=== PATIENT | female | born 1985 | race Caucasian/White ===

== ENCOUNTER 2018-01-21 10:41 | Day surgery (SDC) | payer BC ==
[2018-01-20 11:40] VITALS: BMI 25.7
[2018-01-21 11:25] VITALS: TEMP 97.8
[2018-01-21] MEDS ORDERED: Lactated Ringer's 500 ML IV SCH (12:00)
[2018-01-21] MEDS ORDERED: Lactated Ringer's 1,000 ML IV ONE (12:20)
[2018-01-21] MEDS ORDERED: Propofol 10 mg/ml Inj (20 ML) ONE (12:24)
[2018-01-21] MEDS ORDERED: Lidocaine Hydrochloride 5 ML INJ ONE (12:24)
[2018-01-21 14:19] VITALS: O2SAT 99
[2018-01-21 14:25] VITALS: BP 121/67; PULSE 80; RESP 15
== END 2018-01-21 13:45 | disposition home or self-care (01) ==
LOC: C.ENDO 10:41
PROVIDERS: ATTEND Internal Medicine Gastroenterology
DX: R10.13 Epigastric pain (principal); K29.70 Gastritis, unspecified, without bleeding; K44.9 Diaphragmatic hernia without obstruction or gangrene
CPT/HCPCS: 43239; 84703; 88305; J2704; J7120